=== PATIENT | male | born 1970 | race Caucasian/White ===

== ENCOUNTER 2022-04-13 12:29 | Emergency (ER) | payer BC, MEDICAID, SELFPAY ==
[~2022-04-13] VITALS: Ht 188 cm; Wt 109.0 kg
[2022-04-13 12:35] VITALS: BP 140/86
[2022-04-13] MEDS ORDERED: LIDOcaine 1% w/EPI 1:100,000 30ml vial (MDV) IJ ONE (13:30)
[2022-04-13] MEDS ORDERED: TETanus/Pertussis (Acell)/Diphther VAC/PF (Tdap-Adult) 0.5ml syringe IMVAC ONE (13:30)
[2022-04-13] MEDS ORDERED: LIDOcaine 1.5% w/epinephrine 1:200,000 5ml ampul IJ ONE (13:30)
== END 2022-04-13 14:15 | disposition home or self-care (01) ==
LOC: ER 12:30
DX: S61.412A Laceration without foreign body of left hand, initial encounter (principal); Z88.0 Allergy status to penicillin; W45.8XXA Other foreign body or object entering through skin, initial encounter; Y93.89 Activity, other specified; Y92.89 Other specified places as the place of occurrence of the external cause; Y99.8 Other external cause status
CPT/HCPCS: 12001; 90471; 90715; 99283; J7030; 11760; A6258; A6449